=== PATIENT | female | born 1995 | race African-American/Black ===

== ENCOUNTER 2019-11-20 20:39 | Emergency (ER) | payer MEDICAID ==
[~2019-11-20] VITALS: Ht 154.9 cm; Wt 71.9 kg
[2019-11-20 20:42] VITALS: BP 129/81
--- NOTE | 2019-11-20 21:49 | NUR ---
pt to room from lobby
[2019-11-20] MEDS ORDERED: KETOROLAC 30 MG/1 ML IM ONE (23:00)
[2019-11-20 23:38] LABS: WET PREP WBCS MANY (FEW)
[2019-11-20 23:39] LABS: CLUE CELLS NONE SEEN (NONE SEEN)
[2019-11-20] MEDS ORDERED: KETOROLAC 30 MG/1 ML ONE (23:39)
--- NOTE | 2019-11-21 00:01 | NUR ---
PT PROVIDED WITH URINE CUP AND INSTRUCTIONS FOR SAMPLE COLLECTION. VERBALIZES UNDERSTANDING. DENIES ANY FURTHER NEEDS OR CONCERNS AT THIS TIME. CALL LIGHT IN REACH.
[2019-11-21 00:33] LABS: HCG UR SG 1.005 (1.003-1.030)
== END 2019-11-21 00:54 | disposition home or self-care (01) ==
LOC: ED 21:58
DX: N89.8 Other specified noninflammatory disorders of vagina (principal); R30.0 Dysuria; F17.210 Nicotine dependence, cigarettes, uncomplicated
CPT/HCPCS: 81025; 87210; 87491; 87591; 87808; 99283; J1885